=== PATIENT | female | born 1990 | race Caucasian/White ===

== ENCOUNTER 2021-11-13 17:16 | Emergency (ER) | payer SELFPAY ==
[2021-11-13 18:30] VITALS: BP 131/68; PULSE 96; RESP 19; TEMP 36.9; O2SAT 99; BMI 38.7
--- NOTE | 2021-11-13 18:42 | EXP.UTC ---
Discharge Plan Disposition Patient Disposition: Home, Self-Care Condition: Good Referrals Referrals: Provider,Referral, MD [Primary Care Provider] - Enter time for follow up Clinical Impressions Clinical Impression: Sciatica Instructions Patient Instructions: Sciatica, DI for Sciatica, DI for Back Pain With Sciatica Discharge ED Provider: Mere Mahajan [facility] [place] HPI General Stated complaint: back and Left Leg Pain Mode of Arrival: Ambulatory Source of Information: Patient Limitations: No Limitations Time Seen by Provider: 11/13/21 18:42 Description of Symptoms (Recalled from Triage Doc. by RN): PATIENT C/O LOWER BACK/SCIATICA PAIN THAT RADIATES DOWN LEFT LEG X 1 WEEK HEENT Symptoms (Recalled from RN notes): No Resp Symptoms (Recalled from RN notes): No Skin Symptoms (Recalled from RN notes): No MS Symptoms (Recalled from RN notes): Yes Functional Status (Recalled from RN notes): WNL History of Present Illness Provider Complaint: Patient states that she has a history of sciatica States that for the last week she has been having pain in her left lower back/buttock area that is radiating down into her upper leg States that she has this and sometimes has to come in and get a shot to help it Related Data Allergies Allergy/AdvReac Type Severity Reaction Status Date / Time No Known Allergies Allergy Verified 11/13/21 18:39 Worker's Comp Is this a Worker's Comp case?: No PFSH PFS Social History (Updated 11/13/21 @ 18:39 by Tracy Lucero RN) Smoking Status: Never smoker alcohol intake: never current occupational status: other Travel in the last 8 weeks: None ROS Obtained: Yes All systems reviewed & no additional complaints except as documented and Yes Systems reviewed as appropriate & no additional complaints except as documented Constitutional Constitutional: Reports system reviewed and no additional complaints, except as documented and Reports as per HPI Eyes Eyes: Reports system reviewed and no additional complaints, except as documented and Reports as per HPI ENT Ears, Nose, Mouth, and Throat: Reports system reviewed and no additional complaints, except as documented and Reports as per HPI Cardiovascular Cardiovascular: Reports system reviewed and no additional complaints, except as documented and Reports as per HPI Respiratory Respiratory: Reports system reviewed and no additional complaints, except as documented and Reports as per HPI Gastrointestinal Gastrointestingal: Reports system reviewed and no additional complaints, except as documented and as per HPI Musculoskeletal Musculoskeletal: Reports back pain Comments: sciatic nerve pain left side that goes into left upper leg Physical Exam General General appearance: alert and in no apparent distress Respiratory Respiratory exam: Present normal lung sounds bilaterally and respiratory distress Cardiovascular Cardiovascular exam: Present regular rate and normal rhythm Back Exam Back exam: Present sciatic notch tenderness (L) Back 1 view image: 1. reports history of sciatica Reports pain in left lower back/buttock area that radiates down into left upper leg with movement Denies loss of control of bowel or bladder Neurological Exam Neurological exam: Present alert, oriented X3 and normal gait Medical Decision Making Bro Inquiry Pt receiving controlled substance: No Bro was queried for this patient: No Vital Signs: 11/13/21 18:30 Temperature 98.5 F Temperature Source Oral Pulse Rate [Right Brachial] 96 H Respiratory Rate 19 Blood Pressure [Right Arm] 131/68 Blood Pressure Mean [Right Arm] 89 Blood Pressure Source [Right Arm] Automatic Cuff Blood Pressure Position [Right Arm] Sitting 02 Sat by Pulse Oximetry 99 Oxygen Delivery Method Room Air Lab Data Lab results reviewed: Yes I reviewed the patient's lab results.
[2021-11-13 18:58] LABS: UTC Pregnancy Test, Urine Negative (Negative)
[2021-11-13 19:08] VITALS: BP 131/68; PULSE 96; RESP 19; TEMP 36.9; O2SAT 99
== END 2021-11-13 19:20 | disposition home or self-care (01) ==
PROVIDERS: Emergency Provider Nurse Practitioner
DX: M54.42 Lumbago with sciatica, left side (principal)
CPT/HCPCS: 81025; 96372; 99212; G0463

== ENCOUNTER 2021-11-18 11:07 | Emergency (ER) | payer SELFPAY ==
[2021-11-18 12:15] VITALS: BP 126/85; PULSE 118; RESP 17; TEMP 37.1; O2SAT 98; BMI 40.7
--- NOTE | 2021-11-18 12:32 | EXP.UTC ---
Discharge Plan Disposition Patient Disposition: Home, Self-Care Condition: Good Prescriptions Prescriptions: New methylprednisolone [Medrol ([place])] 4 mg tablets,dose pack See Rx Instructions .Route .COMPLEX 6 Days Qty: 21 0RF Rx Instructions: taper pack; methocarbamol 500 mg tablet 500 mg PO Q8H PRN (Reason: muscle spasm) 5 Days Qty: 20 0RF Referrals Follow up/Referrals: Provider,Referral, MD [Primary Care Provider] - See instructions Activity Restrictions/Add. Instructions Additional Instructions/Restrictions: Start oral steriods tomorrow Follow up with your Family Doctor if no improvement or any worsening of pain Return if needed Soaks in warm water and epson salt may help Straight to ER if any life threatening symptoms Clinical Impressions Clinical Impression: Sciatica Instructions Patient Instructions: Sciatica, DI for Sciatica Discharge ED Provider: Mere Mahajan [facility] General Stated complaint: Sciatic pain Mode of Arrival: Ambulatory Source of Information: Patient Limitations: No Limitations Time Seen by Provider: 11/18/21 12:32 Description of Symptoms (Recalled from Triage Doc. by RN): PATIENT C/O LEFT SCIATICA PAIN X 3 DAYS HEENT Symptoms (Recalled from RN notes): No Resp Symptoms (Recalled from RN notes): No Skin Symptoms (Recalled from RN notes): No MS Symptoms (Recalled from RN notes): Yes Functional Status (Recalled from RN notes): WNL History of Present Illness Provider Complaint: Patient states that she has been having issues with her sciatca acting up States that she has been having pain in her left buttock area going down into her left upper leg States that she has a history of it and has recently traveled and got it acting up Related Data Previous Rx's Medication Instructions Recorded methocarbamol 500 mg tablet 500 mg PO Q8H PRN muscle spasm 5 11/18/21 days #20 tabs methylprednisolone 4 mg tablets in See Rx Instructions .Route 11/18/21 a dose pack (Medrol ([place])) .COMPLEX 6 days #21 tabs Allergies Allergy/AdvReac Type Severity Reaction Status Date / Time No Known Allergies Allergy Verified 11/13/21 18:39 Worker's Comp Is this a Worker's Comp case?: No PFSH PFSH Social History (Updated 11/18/21 @ 12:28 by Tracy Lucero RN) Smoking Status: Never smoker alcohol intake: never current occupational status: other ROS Obtained: Yes All systems reviewed & no additional complaints except as documented and Yes Systems reviewed as appropriate & no additional complaints except as documented Constitutional Constitutional: Reports system reviewed and no additional complaints, except as documented and Reports as per HPI ENT Ears, Nose, Mouth, and Throat: Reports system reviewed and no additional complaints, except as documented and Reports as per HPI Cardiovascular Cardiovascular: Reports system reviewed and no additional complaints, except as documented and Reports as per HPI Gastrointestinal Gastrointestingal: Reports system reviewed and no additional complaints, except as documented and as per HPI Musculoskeletal Musculoskeletal: Reports other (left side sciatca pain Denies loss of control of bowel or bladder) Neurologic Neurologic: Reports system reviewed and no additional complaints, except as documented and Reports as per HPI Physical Exam General General appearance: alert and in no apparent distress Respiratory Respiratory exam: Present normal lung sounds bilaterally; Absent respiratory distress or wheezes Cardiovascular Cardiovascular exam: Present regular rate, normal rhythm and normal heart sounds Back Exam Back exam: Present sciatic notch tenderness (L) Back 1 view image: 1. patient reports tightness and pain in left buttock that goes into left upper leg like she has had before with sciatca Neurological Exam Neurological exam: Present alert, oriented X3 and normal gait Medical Decision Making Bro Inquiry Pt receiving controll
[2021-11-18 12:54] VITALS: BP 126/85; PULSE 118; RESP 17; TEMP 37.1; O2SAT 98
== END 2021-11-18 13:04 | disposition home or self-care (01) ==
PROVIDERS: Emergency Provider Nurse Practitioner
DX: M54.32 Sciatica, left side (principal)
CPT/HCPCS: 96372; 99212; G0463